=== PATIENT | male | born 2000 ===

== ENCOUNTER 2023-04-27 15:35 | Outpatient (REF) | payer BC, SELFPAY ==
--- NOTE | ~2023-04-27 | XR_ITS ---
EXAMINATION: XR HAND, RIGHT CLINICAL INFORMATION: Pain COMPARISON: None TECHNIQUE: 3 views of the hand FINDINGS: Acute displaced intra-articular fracture of the dorsal base of the fourth distal phalanx. Joint spaces are maintained. No cortical erosion. Soft tissues are unremarkable. XR/XR hand RT min 3V IMPRESSION: 1. Acute displaced intra-articular fracture of the dorsal base of the fourth distal phalanx.
== END 2023-04-27 15:36 | disposition home or self-care (01) ==
LOC: HO.HOSX 15:35
PROVIDERS: Visit Provider Physician Assistant
DX: M20.011 Mallet finger of right finger(s) (principal)
CPT/HCPCS: 73130

== ENCOUNTER 2023-04-27 16:07 | Outpatient (AMB) | payer BC, SELFPAY ==
--- NOTE | 2023-04-27 16:10 | A.OFFVIS_ITS ---
Intake Vital Signs 04/27/23 16:21 Height 5 ft 4 in Weight 180 lb BMI 30.9 Intake Visit Reasons: N/P hand pain / [employer] student Intake Note: Param 23 yr old male who is right hand dominant presents today a new patient visit for his right hand pain. States while he was at the gym about 3 weeks ago, he dropped a weight on his ring finger. States it was about 40 lbs. Seen at [facility] where he was referred to an orthopedics specialist. Allergies No Known Allergies Allergy (Verified 04/27/23 16:22) Medication List - Last Reconciled 04/28/23 by Angeline Saunders PA-C dextroamphetamine-amphetamine 15 mg ER 1 cap PO QAM fluoxetine 40 mg PO DAILY methylphenidate HCl 5 mg PO DAILY HPI N/P hand pain / [employer] student HPI Details 23-year-old right hand dominant male who presents to the office today for evaluation of right-hand pain s/p dropping a 40 lbs. weight on his ring finger at gym. He was seen at [facility] where he was evaluated and referred to our office for further recommendations. He states he is right hand dominant. [facility] Social History (Updated 04/27/23 @ 16:23 by MIKALA Delacruz) Current occupational status: employed and student Current occupation: rt [employer] Review of Systems Const All systems reviewed & are unremarkable except as noted in HPI and below Physical Exam Vital Signs: BMI result Body Mass Index 30.9 Const General: cooperative, healthy appearing, comfortable, no acute distress, well developed and alert Orientation/consciousness: patient oriented x3 HEENT Head: Yes normal to inspection, Yes normocephalic and Yes atraumatic Eyes General: appearance normal, both eyes and all related structures Neck Neck: Yes normal visual inspection and Yes no lymphadenopathy Resp Effort & Inspection: normal respiratory effort and able to speak in complete sentences Cardio Rate: regular rate Peripheral pulses: Peripheral pulses 2+ throughout GI Inspection: Yes normal to inspection Palpation (GI): Soft to palpation Skin General skin exam: no rashes or lesions noted Lesions: no lesions Rashes: no rashes Neuro General: patient oriented x3 Extrem Other: Right hand normal to inspection. He has some tenderness along the DIP with inability to ful flex at the DIP. NVI. Psych Appearance: grossly normal Mental Status: mental status grossly normal Office Procedures Fracture Care Fracture Billing Code: Fracture Billing Code Results Reviewed Results Reviewed: Xrays were obtained in the office today and personally reviewed by me of the right hand show bony mallet at the DIp joint with intraarticular extension with early callus Assessment & Plan Assessment & Plan (1) Mallet deformity of right ring finger: Code(s): M20.011 - Mallet finger of right finger(s) Plan This is a subluxed right ring distal phalanx. It is partially healed. He cannot bend it and we will try to reduce it with closed reduction and percutaneous pinning. I discussed the extent of the injury to the patient and options available. I explained to the patient the procedure in detail along with the risks, benefits and alternatives. Risks including but not limited to infection, wound breakdown, stiffness, ongoing pain, nonunion or malunion, and possible complications with hardware. He does understand all this and would like to proceed with closed reduction percuntaneous pinning of the right ring finger. Orders: Orders 2 XR hand RT min 3V 04/27/23 M79.641 - Pain in right hand XR hand LT min 3V 04/27/23 M79.642 - Pain in left hand Patient Instructions: Scribed for Angeline Saunders PA-C, by Wilfredo Mckeon medical parasitologist, on 04/27/2023 at 3:15 PM EST. IAngeline PA-C, have personally reviewed and agree with the information entered by the scribe. Coding Level of Care Code New Pt Level 4 (56929) Diagnoses Mallet deformity of right ring finger M20.011 CPT Codes Fracture Care - Fracture Billing Code: Fracture Billing Code ([id number])
[2023-04-27 16:21] VITALS: BMI 30.9
== END 2023-04-27 17:00 ==
LOC: HO.HOS 16:07
PROVIDERS: PCP Family Medicine Sports Medicine; Visit Provider Physician Assistant
DX: M20.011 Mallet finger of right finger(s) (principal)
CPT/HCPCS: 99204

== ENCOUNTER 2023-04-29 13:01 | Day surgery (SDC) | payer BC, SELFPAY ==
[2023-04-29] VITALS (10 sets, daily range): BP systolic 114–133; BP diastolic 65–87; PULSE 56–70; RESP 12–18; TEMP 36.1–36.3; O2SAT 96–100; BMI 28.0
--- NOTE | ~2023-04-29 | FL_ITS ---
EXAMINATION: XR FLUOROSCOPY WITH IMAGES CLINICAL INFORMATION: Right finger ORIF. COMPARISON: X-ray right hand April 2023 TECHNIQUE: Fluoroscopy Supervised By: Dr. Carols Hendrix. Fluoroscopy Time: 23.09 seconds. Cumulative Dose: 0.2925 mGy. DAP: 0.0177 Gycm2. Images: 3. FINDINGS: Images demonstrate a K wire or pin tract across the DIP joint of the right fourth finger. There is improved alignment of the fracture of the dorsal distal phalanx intra-articular with the DIP joint. FL/FL guidance in OR IMPRESSION: Fluoroscopic guidance for right fourth finger ORIF.
--- NOTE | 2023-04-29 13:22 | HO.ANESPROP2 ---
[facility] Active Problems Active Problems: All Active Problems (Updated 04/29/23 @ 13:20 by Hayley Winn MD) Mallet deformity of right ring finger (Acute) ADHD Family History Family history of problems with anesthesia: No Surgical History History of Problems with Anesthesia: No Social History Social History (Updated 04/29/23 @ 14:47 by Hayley Winn MD) Patient Tobacco Use Status: Former Tobacco user Substance Use Type: Marijuana Current occupational status: employed and student Current occupation: rt [employer] Meds Allergies Allergy/AdvReac Type Severity Reaction Status Date / Time No Known Allergies Allergy Verified 04/27/23 16:22 Active Medications: Current Medications Cefazolin Sodium/Dextrose (Ancef) 2 gm in 50 mls @ 100 mls/hr IV PREOP ONE Stop: 04/29/23 13:38 Lactated Ringer's (Lr) 1,000 mls @ 100 mls/hr IVCONT .Q10H [facility] Home Medications Medication Instructions Recorded Confirmed Last Taken Type dextroamphetamine-amphetamine ER 1 cap PO QAM 04/27/23 04/28/23 Unknown History 15 mg 24hr capsule,extend release fluoxetine 40 mg capsule 40 mg PO DAILY 04/27/23 04/28/23 Unknown History methylphenidate HCl 5 mg tablet 5 mg PO DAILY 04/27/23 04/28/23 Unknown History Exam Height,Weight and Vital Signs: Height 5 ft 5 in Weight 76.204 kg Vital Signs Temp Pulse Resp BP Pulse Ox O2 Del Method 04/29/23 13:42 97.0 F 70 18 114/79 97 Room Air Airway Mallampati Class: II TM Dist: >3cm Neck ROM: Full Loose/Missing/Broken Teeth: Yes (Chipped tooth top front. Denies loose, missing teeth) Heart: RRR Lungs: CTAB Assessment and Plan Assessment Anesthesia Assessment: Anesthesia Plan Discussed and Chart Reviewed Final Anesthetic Review Family History of Problems with Anesthesia: No History of Problems with Anesthesia: No NPO: Yes ASA Class: II Final Preanesthetic Review: No Changes in Pt Med Stat, Meds/Allgs Chart Reviewed, Consent Obtained/Reviewed and Anes Risks/Benef Reviewed Patient Risk: Low Procedure Risk: Low Assessment/Block/Sedation in SS: Assess/Block/Sedation-SS Anesthetic Plan Anesthetic Plan: GA Disposition: Standard PACU
[2023-04-29] MEDS: Lactated Ringers 1,000 ML 100 ML IVCONT (13:46)
--- NOTE | 2023-04-29 14:54 | PM.OP ---
Brief Operative Note Date of Service: 04/29/23 Pre-op diagnosis: intra articular fracture right ring finger Post-op diagnosis: same Procedure: CRPP right ring finger DIP Implants: 0.54 k wire Surgeon: Carlos Hendrix MD Anesthesia: GETA and local Was an Tobacco Prevention Health Educator used for this Procedure?: No Estimated blood loss (mL): 20 IV fluids (mL): 750 Pathology: none sent Condition: stable Disposition: PACU
--- NOTE | 2023-05-02 07:29 | P.OP_ITS ---
Operative Note Operative Note Date of Service: 04/29/23 Narrative: Date of Service: 04/29/23 Pre-op diagnosis: intra articular fracture right ring finger Post-op diagnosis: same Procedure: CRPP right ring finger DIP Implants: 0.54 k wire Surgeon: Carlos Hendrix MD Anesthesia: GETA and local Was an Facilities Maintenance Supervisor used for this Procedure?: No Estimated blood loss (mL): 20 IV fluids (mL): 750 Pathology: none sent Condition: stable Disposition: PACU Patient was brought to the operating room and placed supine on the surgical table. He was prepped and draped in standard sterile fashion and a time out was called to identify proper site, proper procedure and IV antibiotics per weight were administered. His right ring finger was examined under flouro. THe distal phalanx was subluxing volarly and there was a dorsal articular fragment. The fracture was partially healed. Under flouro I distracted and extended the DIP. I was able to align the joint and reduce the subluxation but the dorsal fragment was non mobile. The injury was >4 weeks out and so I placed one 0.54 k-wire from distal to proximal across the reduced DIP. The dorsal fragment was left in place. I was satisfied with the reduction and the pin was cut and an ulnar gutter splint was applied in a position of safety. A digital block was performed with 0.25% marcaine (~8ml) and the patient was awakened from anesthesia and brought to the recovery room in stable condition. There were no known complications. The plan is to keep him immobilized for 4-6 weeks depending on radiographs and treat as a bony mallet.
== END 2023-04-29 17:02 | disposition home or self-care (01) ==
PROVIDERS: Visit Provider Orthopaedic Surgery
PROC: (CPT 26756; principal; 2023-04-29 14:50)
DX: S62.634A Displaced fracture of distal phalanx of right ring finger, initial encounter for closed fracture (principal); W20.8XXA Other cause of strike by thrown, projected or falling object, initial encounter; M20.011 Mallet finger of right finger(s); F12.90 Cannabis use, unspecified, uncomplicated; Z87.891 Personal history of nicotine dependence; Y93.B3 Activity, free weights; Y92.9 Unspecified place or not applicable; Y99.9 Unspecified external cause status
CPT/HCPCS: 26756; J0690; J1100; J1885; J2250; J2405; J2704; J2795; J3010

== ENCOUNTER → 2023-04-29 13:01 | Outpatient (BNV) | payer BC, SELFPAY | PROVIDERS: Visit Provider Orthopaedic Surgery | DX: S62.634A Displaced fracture of distal phalanx of right ring finger, initial encounter for closed fracture (principal) | CPT/HCPCS: 26756 ==

== ENCOUNTER 2023-05-21 08:46 | Outpatient (AMB) | payer BC, SELFPAY ==
--- NOTE | 2023-05-21 08:50 | MHC.OFFVIS ---
Intake Vital Signs 05/21/23 09:06 Height 5 ft 4 in Weight 170 lb BMI 29.2 Handedness Right Intake Visit Reasons: PO Rt RF CRPP vs ORIF 04/29/23 NE Intake Note: Param is a 23 year old right hand dominant male who presents today for a post op appointment s/p right RF CRPP vs ORIF 04/29/23 NE. Patient reports he is doing well, however the tip of his finger feels numb. Allergies No Known Allergies Allergy (Verified 05/21/23 08:51) HPI PO Rt RF CRPP vs ORIF 04/29/23 NE HPI Details 23-year-old male who presents in the office today 3 weeks status post right ring finger DIP CRPP, which was performed on 04/29/[address] Hendrix. The patient reports he is doing well and is having no pain. He reports the tip of his right ring finger is numb. [facility] Social History Patient Tobacco Use Status: Former Tobacco user Substance Use Type: Marijuana Current occupational status: employed and student Current occupation: rt hand / [employer] Review of Systems Const All systems reviewed & are unremarkable except as noted in HPI and below Physical Exam Vital Signs: BMI result Body Mass Index 29.2 Const General: cooperative, healthy appearing and no acute distress Resp Effort & Inspection: normal respiratory effort and able to speak in complete sentences Cardio Rate: regular rate Peripheral pulses: Peripheral pulses 2+ throughout GI Palpation (GI): Soft to palpation Skin Lesions: no lesions Rashes: no rashes Extrem Other: Right ring finger: Pin site is clean, dry, and intact. No surrounding erythema or drainage. No signs of infection. Sensation intact. Capillary refill is brisk. Office Procedures Casting/Splints 93387-Ipsh/Wrist Cast Application Procedure code (CPT) selection complete Assessment & Plan Assessment & Plan (1) Mallet deformity of right ring finger: Code(s): M20.011 - Mallet finger of right finger(s) Plan Mr. Santacruz is a 23-year-old male who presents in the office today 3 weeks status post right ring finger DIP CRPP, which was performed on 04/29/[address] Hendrix. The patient reports he is doing well and is having no pain. He reports the tip of his right ring finger is numb. The pin site was clean and redressed with xeroform and curlex. He was placed in a short ulnar gutter cast, custom made. Follow up will be in 3 weeks for repeat x-rays with cast off and potential pin removal, or sooner if needed. X-rays of the right hand which were obtained while in the office today and were reviewed by me, Yamile Patino PA-C, revealed pin site intact and fracture is stable. Orders: Orders XR hand RT min 3V Today M79.643 - Pain in unspecified hand Patient Instructions: Scribed for Yamile Patino PA-C by Dagmar Bautista medical engineer, on 05/21/2023 at 8:48 am, EST. Coding Level of Care Code Global (58472) Diagnoses Mallet deformity of right ring finger M20.011 CPT Codes Casting - CPT: 82911-Pxip/Wrist Cast Application ([id number])
[2023-05-21 09:06] VITALS: BMI 29.2
== END 2023-05-21 09:51 | disposition home or self-care (01) ==
PROVIDERS: PCP Family Medicine Sports Medicine; Visit Provider Physician Assistant
DX: M20.011 Mallet finger of right finger(s) (principal)
CPT/HCPCS: 29085; 99024

== ENCOUNTER 2023-05-21 10:43 | Outpatient (REF) | payer BC, SELFPAY ==
--- NOTE | ~2023-05-21 | XR_ITS ---
EXAMINATION: XR HAND, RIGHT XR HAND, LEFT CLINICAL INFORMATION: Right finger open reduction and internal fixation (ORIF). COMPARISON: Fluoroscopic guidance in O.R. of 04/29/2023 and radiographs of 04/27/2023 right-hand. TECHNIQUE: 3 views of each hand. FINDINGS: RIGHT HAND: Redemonstration of K-wire traversing the fourth digit DIP joint. Redemonstration of intra-articular fracture of the dorsal base of the fourth distal phalanx. Diffuse soft tissue swelling. LEFT HAND: Joint spaces and alignment are preserved. Bone mineralization is normal. No acute displaced fracture. XR/XR hand RT min 3V IMPRESSION: 1. Redemonstration of intra-articular fracture of the dorsal base of the right fourth distal phalanx. K-wire traversing the right fourth digit DIP joint. 2. No displaced fracture left hand. Recommend follow-up imaging in 10-14 days if fracture is suspected.
--- NOTE | ~2023-05-21 | XR_ITS ---
EXAMINATION: XR HAND, RIGHT XR HAND, LEFT CLINICAL INFORMATION: Right finger open reduction and internal fixation (ORIF). COMPARISON: Fluoroscopic guidance in O.R. of 04/29/2023 and radiographs of 04/27/2023 right-hand. TECHNIQUE: 3 views of each hand. FINDINGS: RIGHT HAND: Redemonstration of K-wire traversing the fourth digit DIP joint. Redemonstration of intra-articular fracture of the dorsal base of the fourth distal phalanx. Diffuse soft tissue swelling. LEFT HAND: Joint spaces and alignment are preserved. Bone mineralization is normal. No acute displaced fracture. XR/XR hand LT min 3V IMPRESSION: 1. Redemonstration of intra-articular fracture of the dorsal base of the right fourth distal phalanx. K-wire traversing the right fourth digit DIP joint. 2. No displaced fracture left hand. Recommend follow-up imaging in 10-14 days if fracture is suspected.
== END 2023-05-21 10:44 | disposition home or self-care (01) ==
LOC: HO.HOSX 10:43
PROVIDERS: Visit Provider Physician Assistant
DX: M20.011 Mallet finger of right finger(s) (principal); M79.642 Pain in left hand
CPT/HCPCS: 29085; 73130

== ENCOUNTER 2023-06-11 13:07 | Outpatient (REF) | payer BC, SELFPAY ==
--- NOTE | ~2023-06-11 | XR_ITS ---
EXAMINATION: XR HAND, RIGHT CLINICAL INFORMATION: Pain. COMPARISON: Prior radiographs, most recently 05/21/2023. TECHNIQUE: PA, lateral, and oblique views of the right hand. FINDINGS: A K wire is again seen, traversing the fourth distal interphalangeal joint coaxially. No hardware failure or loosening is seen. A mildly displaced fracture fragment again is seen on the lateral view arising from the dorsal aspect of the base of the fourth distal phalanx. There is mild adjacent soft tissue swelling, without gas or foreign body. The proximal and distal carpal rows are intact. There is a neutral ulnar variance. XR/XR hand RT min 3V IMPRESSION: There is stable alignment of an intra-articular fracture of the dorsal base of the fourth distal phalanx. A K wire is again seen coaxially traversing the fourth distal interphalangeal joint. No hardware failure or loosening is seen.
== END 2023-06-11 13:08 | disposition home or self-care (01) ==
LOC: HO.HOSX 13:07
PROVIDERS: Visit Provider Physician Assistant
DX: M79.641 Pain in right hand (principal); M20.011 Mallet finger of right finger(s); Z47.89 Encounter for other orthopedic aftercare
CPT/HCPCS: 73130

== ENCOUNTER 2023-06-11 14:56 | Outpatient (AMB) | payer BC, SELFPAY ==
[2023-06-11 15:26] VITALS: BMI 29.2
--- NOTE | 2023-06-11 15:26 | MHC.OFFVIS ---
Intake Vital Signs 06/11/23 15:26 Height 5 ft 4 in Weight 170 lb BMI 29.2 Intake Visit Reasons: PO Rt RF CRPP vs ORIF 04/29/23 NE cast off Intake Note: Param is a 23 year old right hand dominant male who presents today for a post op appointment s/p right RF CRPP vs ORIF 04/29/23 NE. Xrays updated ni office. Allergies No Known Allergies Allergy (Verified 06/11/23 15:27) HPI PO Rt RF CRPP vs ORIF 04/29/23 NE cast off HPI Details 23-year-old male who presents in the office today 3 weeks status post right ring finger DIP CRPP, which was performed on 04/29/[address] Hendrix. I last saw the patient in the office on 05/21/2023 where the pin site was redressed and he was placed in an ulnar gutter cast. PFSH Social History Patient Tobacco Use Status: Former Tobacco user Substance Use Type: Marijuana Current occupational status: employed and student Current occupation: rt hand / [employer] Review of Systems Const All systems reviewed & are unremarkable except as noted in HPI and below Physical Exam Vital Signs: BMI result Body Mass Index 29.2 Const General: cooperative, healthy appearing and no acute distress Resp Effort & Inspection: normal respiratory effort and able to speak in complete sentences Cardio Rate: regular rate Peripheral pulses: Peripheral pulses 2+ throughout GI Palpation (GI): Soft to palpation Skin Lesions: no lesions Rashes: no rashes Extrem Other: Right ring finger: Pin site is clean, dry, and intact. There is dry skin surrounding the pin site from the cast. No surrounding erythema or drainage. No signs of infection. Capillary refill is brisk. Sensation intact. Assessment & Plan Assessment & Plan (1) Mallet deformity of right ring finger: Comment: Right ring finger DIP CRPP 04/29/2023 Dr. Carlos Hendrix Code(s): M20.011 - Mallet finger of right finger(s) Plan Mr. Santacruz is a 23-year-old male who presents in the office today 3 weeks status post right ring finger DIP CRPP, which was performed on 04/29/[address] Hendrix. I last saw the patient in the office on 05/21/2023 where the pin site was redressed and he was placed in an ulnar gutter cast. The pin was removed while in the office today. Patient tolerated the procedure very well. The area was cleaned prior to and after the procedure. The patient was placed in a clean dressing with instructions to perform daily dressing changes as needed. I have placed an order for occupational therapy. A paper copy was supplied to the patient so he may attend occupation therapy at his school. I would like for him to work on gentle ROM. Follow up will be in 3 weeks, or sooner if needed. X-rays of the right hand which were obtained while in the office today and were reviewed by me, Yamile Patino PA-C, revealed pin site. Orders: Orders XR hand RT min 3V Today M79.643 - Pain in unspecified hand OT Evaluation and Treatment Today M20.011 - Mallet finger of right finger(s) Patient Instructions: Scribed for Yamile Patino PA-C by Dagmar Bautista medical detailist, on 06/08/2023 at 2:57 pm, EST. Coding Level of Care Code Global (07526) Diagnoses Mallet deformity of right ring finger M20.011
== END 2023-06-11 15:38 | disposition home or self-care (01) ==
PROVIDERS: Visit Provider Physician Assistant
DX: M20.011 Mallet finger of right finger(s) (principal)
CPT/HCPCS: 99024

== ENCOUNTER 2023-07-02 13:04 | Outpatient (AMB) | payer BC, SELFPAY ==
--- NOTE | 2023-07-02 13:09 | A.OFFVIS_ITS ---
Intake Intake Visit Reasons: PO - Rt RF CRPP vs ORIF 04/29/23 NE Intake Note: Param is a 23 year old right hand dominant male who presents today for a post op appointment s/p right RF CRPP vs ORIF 04/29/23 NE. Patient reports no pain at the moment, however he is feeling a little dull pain on his right ring finger. He states that his first appointment is coming up in a couple of weeks with OT. Allergies No Known Allergies Allergy (Verified 07/02/23 13:11) HPI PO - Rt RF CRPP vs ORIF 04/29/23 NE HPI Details 23-year-old right hand dominant male who presents in the office today 2 months status post right ring finger DIP CRPP, which was performed on 04/29/[address] Hendrix. I last saw the patient in the office on 06/11/2023 when the pin was removed. He was placed in clean dressings with the instruction to perform daily dressing changes. A referral to occupational therapy was placed. While in the office today the patient no pain. However he does get a dull pain in the right ring finger. He confirms his first occupational therapy appointment is coming up in a few weeks. [facility] Social History Patient Tobacco Use Status: Former Tobacco user Substance Use Type: Marijuana Current occupational status: employed and student Current occupation: rt [employer] / [employer] Review of Systems Const All systems reviewed & are unremarkable except as noted in HPI and below Physical Exam Const General: cooperative, healthy appearing and no acute distress Resp Effort & Inspection: normal respiratory effort and able to speak in complete sentences Cardio Rate: regular rate Peripheral pulses: Peripheral pulses 2+ throughout GI Palpation (GI): Soft to palpation Skin Lesions: no lesions Rashes: no rashes Extrem Other: Right hand: Normal to inspection. No ecchymosis, erythema, or edema. Able to m kirk a closed fist. Slight stiffness at the DIP of the right ring finger. Sensation intact. Capillary refill is brisk. Assessment & Plan Assessment & Plan (1) Mallet deformity of right ring finger: Comment: Right ring finger DIP CRPP 04/29/2023 Dr. Carlos Hendrix Code(s): M20.011 - Mallet finger of right finger(s) Plan Mr. Santacruz is a 23-year-old right hand dominant male who presents in the office today 2 months status post right ring finger DIP CRPP, which was performed on 04/29/[address] Hendrix. I last saw the patient in the office on 06/11/2023 when the pin was removed. He was placed in clean dressings with the instruction to perform daily dressing changes. A referral to occupational therapy was placed. While in the office today the patient no pain. However he does get a dull pain in the right ring finger. He confirms his first occupational therapy appointment is coming up in a few weeks. The patient confirms having an occupational therapy appointment coming up on 07/20/2023. He states they reach out to him directly from phone number [phone]. The office will reach out to the occupational therapy office to see if the patient is able to be seen sooner. I do not believe he needs extensive occupational therapy and with the demonstration of some exercises, I believe the mild amount of stiffness that remains over the DIP joint will resolve rather quickly. The patient would benefit from a sooner appointment. He is currently happy with his recovery and will follow up PRN, or sooner if need. Of note: I did educate the patient that if he is unhappy with his progress with therapy or if he has any increased pain or continued stiffness he needs to make an appointment for re-evaluation. Patient Instructions: Scribed by Dagmar Bautista, medical technical writer, for Yamile Patino PA-C on 07/02/2023 at 1:16 pm, EST. Coding Level of Care Code Global (87030) Diagnoses Mallet deformity of right ring finger M20.011
== END 2023-07-02 14:04 | disposition home or self-care (01) ==
PROVIDERS: Visit Provider Physician Assistant
DX: M20.011 Mallet finger of right finger(s) (principal)
CPT/HCPCS: 99024

== ENCOUNTER → 2023-07-02 13:04 | Outpatient (BNVA) | payer BC, SELFPAY | PROVIDERS: Visit Provider Physician Assistant ==